=== PATIENT | male | born 2000 | race Asian ===

== ENCOUNTER 2024-08-22 20:53 | Emergency (ER) | payer MEDICARE, SELFPAY ==
[2024-08-22 20:55] VITALS: BP 135/70
[2024-08-22 21:41] VITALS: BMI 18.7
[2024-08-22 21:53] LABS: Urine Albumin Trace (Neg - Trace); Urine Bilirubin Negative (Negative); Urine Character Clear (Clear); Urine Color Yellow; Urine Glucose Negative (Negative); Urine Ketone Negative (Negative); Urine Leukocyte Negative (Negative); Urine Nitrite Negative (Negative); Urine Occult Blood 3+ (Negative); Urine Urobilinogen Negative (Neg - 1+)
[2024-08-22 21:58] VITALS: BP 121/68
[2024-08-22 22:00] VITALS: BP 116/59
[2024-08-22 22:03] LABS: % Basophils 0.3 % (0-2); % Immature Granulocytes 0.4 % (0-0.5); % Monocytes 6.5 % (1.7-9.3); % Neutrophils 86.8 % (42.2-75.2); Absolute Immature Granulocytes 0.1 10^3/uL (0-0.05); Absolute Lymphocytes 0.7 10^3/uL (1.2-3.4); Absolute Monocytes 0.8 10^3/uL (0.1-0.6); Absolute Neutrophils 10.3 10^3/uL (1.4-6.5); Hematocrit 40.8 % (39.0-52.0); Hemoglobin 14.3 g/dL (13.0-18.0); Mean Corpuscular Hgb 29.6 pg (27.0-31.0); Mean Corpuscular Volume 84.5 fL (80.0-94.0); Mean Platelet Volume 9.6 fL (7.4-10.4); Nucleated Red Blood Cells % 0 % (-); Platelet Count 303 10^3/uL (130-400); Red Blood Cell Count 4.83 10^6/uL (4.70-6.10); Red Cell Dist. Width 11.7 % (11.5-14.5); White Blood Cell Count 11.9 10^3/uL (4.8-10.8)
[2024-08-22 22:09] LABS: Urine Mucus Many
[2024-08-22 22:10] LABS: Urine Bacteria Moderate (Negative); Urine Red Blood Cell 26-30 /HPF (0-2); Urine White Cell 0-2 /HPF (0-5)
[2024-08-22 22:19] LABS: ALT (SGPT) 42 U/L (0-50); AST (SGOT) 45 U/L (17-59); Alkaline Phosphatase 50 U/L (38-126); Blood Urea Nitrogen 21 mg/dl (9-20); Calcium 10.2 mg/dl (8.4-10.2); Carbon Dioxide 28 mmol/L (22-30); Chloride 99 mmol/L (98-107); Estimated Creatinine Clearance 97 ml/min; Glucose 138 mg/dl (70-99); Sodium 140 mmol/L (135-145); Total Bilirubin 0.7 mg/dl (0.2-1.3); Total Protein 7.8 g/dl (6.3-8.2); eGFR > 60.00
--- NOTE | 2024-08-22 23:30 | ED.GENMED ---
History of Present Illness
General
Chief Complaint: Flank Pain
Source: patient, family and fitness technician (language line)
Exam Limitations: none
Time Seen by Provider: 08/22/24 21:23
Nursing documentation reviewed up to this point in time: agreed with
History of Present Illness
History of Present Illness:
Ppatient to ED with complaint of left flank and left lower abd pain. Pain started suddenly tonight. No prior history of same. Reports difficulty with urination. Brought to ED by sister for eval.
Past History
Past History
ED Past Medical History: None
ED Past Surgical History: None
Review of Systems
Review of Systems
Allergies reviewed?: Yes
All Other Systems: ROS reviewed and negative except as documented in HPI and ROS
Constitutional: Reports no symptoms
EENT: Reports no symptoms
Respiratory: Reports no symptoms
Cardiac: Reports no symptoms
ABD/GI: Reports abdominal pain (lLQ)
: Reports flank pain
Musculoskeletal: Reports no symptoms
Skin: Reports no symptoms
Neurological: Reports no symptoms
Psychiatric: Reports no symptoms
Phy Exam
General Physical Exam
General Presentation: well appearing and mild distress
General age: appears stated age
General Skin: warm and dry
General Habitus: normal
General Mental: alert
General Hydration: appears well hydrated
Cardiovascular Exam
Cardiovascular Exam: regular rate/rhythm
Gastrointestinal Exam
Gastrointestinal Exam: normal bowel sounds, soft, no organomegaly, no pulsatile mass, non distended and no cva tenderness
Palpation: left lower quadrant: Mild tenderness
Musculoskeletal Exam
Musculoskeletal Exam: full ROM and neuro vasc intact
Skin Exam
Skin Exam: normal color, warm/dry and no rash
Psychiatric Exam
Psychiatric Exam: normal mood/affect
Course
Orders/Labs/Results
Orders:
Orders
08/22/24 21:43
CT Abd/pel Without Iv Or Oral Urgent
Comment:
Reason For Exam: left flank pain
08/22/24 21:45
Complete Blood Count/With Diff Urgent
Comprehensive Metabolic Panel Urgent
Urinalysis Reflex To Culture Urgent
Date Specimen was Collected: 08/22/24
Time Specimen was Collected: 21:44
Urine Microscopic Reflex Cult Urgent
Chlamydia/GC by PCR Urgent
RANDAL Source: Urine
Specimen Description:
Source:: URINE
Date Specimen was Collected: 08/22/24
Time Specimen was Collected: 21:44
Urine Culture Urgent
RANDAL Source: U
Specimen Description:
Date Specimen was Collected: 08/22/24
Time Specimen was Collected: 21:44
Abnormal Lab Results
08/22/24
21:45
WBC 11.9 H 10^3/uL
(4.8-10.8)
Abs Immat Gran (auto) 0.1 H 10^3/uL
(0-0.05)
Absolute Neuts (auto) 10.3 H 10^3/uL
(1.4-6.5)
Absolute Lymphs (auto) 0.7 L 10^3/uL
(1.2-3.4)
Absolute Monos (auto) 0.8 H 10^3/uL
(0.1-0.6)
Neutrophils % 86.8 H %
(42.2-75.2)
Lymphocytes % 6.0 L %
(20.5-51.1)
BUN 21 H mg/dl
(9-20)
Glucose 138 H mg/dl
(70-99)
Ur Occult Blood Reflex 3+ A
(Negative)
Urine RBC 26-30 A /HPF
(0-2)
Urine Bacteria (Reflex) Moderate A
(Negative)
08/22/24 21:45
08/22/24 21:45
Vital Signs
Initial and Last Documented VS:
Initial Vital Signs
Temp Pulse Resp BP Pulse Ox
98.4 F 92 18 135/70 98
08/22/24 20:55 08/22/24 20:55 08/22/24 20:55 08/22/24 20:55 08/22/24 20:55
Last Documented Vital Signs
Temp Pulse Resp BP Pulse Ox
98.4 F 79 18 116/59 98
08/22/24 20:55 08/22/24 22:00 08/22/24 22:00 08/22/24 22:00 08/22/24 22:30
MDM/Problems Addressed
Differential Diagnosis Includes:
Patient to ED with complaint of left flank and lower abd. pain. Pain started suddenly this evening. Afebrile. CT: 'Mild distention of the left intrarenal collecting system and left ureter to the level of the urinary bladder.
2 mm layering calcification in the urinary bladder lumen (likely recently passed from the left ureter). Mild diffuse urinary bladder wall thickening suspicious for acute cystitis. Discussed findings wwith patient. No history of kidney stones. UA
without evidence for UTI. He is feeling much more comfortable. Remains afebrile. WIll discharge home and he will follow up with PCP and urolgy. Given instructions on s/s to return to ED and he is agreeable to plan.
*Radiology
Radiology exam reviewed: radiology read reviewed
*Pulse Oximetry
Patient hypoxic: no
*Critical Care Note
Total Time (30-74mins, 75-104mins- exclusive of procedures): Not Applicable
ED Attending Note
-
Portions of this chart may have been created with voice recognition software.� Occasional wrong word or��sound alike� substitutions may have occurred due to the inherent limitations of voice recognition software.
Discharge Plan
Departure
Patient Disposition: Home (Routine Discharge)
Date of Disposition: 08/22/24
Time of Disposition: 22:38
Patient with high blood pressure during this ER visit?: No
Condition: Good
Covid-19: Not Applicable
Discharge Problem:
Kidney stone
Instructions: Kidney Stones (DC)
Referrals:
Gabriel Alarcon Jr., MD [Active] - Call in 1-3 days for appt
Interventions
Interventions:
*Risk Screen - Suicide Last Done: 08/22/24 20:55
*General Assessment Last Done: 08/22/24 20:55
*Neglect/Abuse Screening Last Done: 08/22/24 20:55
ED- Fall Risk Assessment Last Done: 08/22/24 21:50
*ED COVID-19 Vaccine History Last Done: 08/22/24 20:55
*Nursing Disposition Last Done: 08/22/24 22:48
VJ-Citkwu-Ciipjifsiy Assessment Last Done: 08/22/24 21:42
ED-Male Genitourinary Assessment Last Done: 08/22/24 21:42
Discharge Date and Time
Discharge Date/Time: 08/22/24 22:49
Print Language: [id number]
== END 2024-08-22 22:49 | disposition home or self-care (01) ==
LOC: EMR 20:53
PROVIDERS: Nurse Practitioner; EMERGENCY PHYSICIAN Emergency Medicine
DX: N20.0 Calculus of kidney (principal)
CPT/HCPCS: 99284; 74176; 80053; 81003; 81015; 85025; 87086; 87491; 87591